=== PATIENT | female | born 1995 | race Caucasian/White ===

== ENCOUNTER → 2024-10-06 15:34 | Outpatient (REF) | payer OTHER, SELFPAY | LOC: RAD 15:34 | PROVIDERS: ATTENDING PHYSICIAN Student in an Organized Health Care Education/Training Program; FAMILY PHYSICIAN Family Medicine | DX: R19.4 Change in bowel habit (principal); R10.84 Generalized abdominal pain | CPT/HCPCS: 74177; Q9967 ==

== ENCOUNTER 2024-11-22 06:28 | Day surgery (SDC) | payer OTHER, SELFPAY | END 2024-11-22 12:09 | disposition home or self-care (01) | LOC: GI 06:28 | PROVIDERS: ATTENDING PHYSICIAN Student in an Organized Health Care Education/Training Program | DX: K63.5 Polyp of colon (principal); K62.89 Other specified diseases of anus and rectum; K64.4 Residual hemorrhoidal skin tags; R10.84 Generalized abdominal pain; K62.5 Hemorrhage of anus and rectum; K59.00 Constipation, unspecified; D13.2 Benign neoplasm of duodenum; K31.89 Other diseases of stomach and duodenum | CPT/HCPCS: 45385; 43239; 88305; 88342 ==